=== PATIENT | female | born 1975 | race Caucasian/White ===

== ENCOUNTER 2016-04-17 03:53 | Emergency (ER) | payer BC, OTHER ==
[2016-04-17] MEDS ORDERED: DEXAMETHASONE 10 MG/ML VIAL PO STA (04:00)
[2016-04-17] MEDS ORDERED: AMOX/CLAV 875 MG/125 MG TABLET PO STA (04:00)
[2016-04-17] MEDS ORDERED: LIDOCAINE VISCOUS 2% 15 ML UDC MM STA (04:00)
[2016-04-17] MEDS ORDERED: KETOROLAC 60 MG/2 ML VIAL IM STA (04:00)
[2016-04-17] MEDS ORDERED: LIDOCAINE VISCOUS 2% 15 ML UDC MM ONE (04:03)
[2016-04-17] MEDS ORDERED: AMOX/CLAV 875 MG/125 MG TABLET PO ONE (04:04)
[2016-04-17] MEDS ORDERED: KETOROLAC 60 MG/2 ML VIAL ONE (04:04)
[2016-04-17] MEDS ORDERED: DEXAMETHASONE 10 MG/ML VIAL ONE (04:04)
== END 2016-04-17 04:28 | disposition home or self-care (01) ==
DX: J36 Peritonsillar abscess (principal)
CPT/HCPCS: 96372; 99283; A9270

== ENCOUNTER 2020-07-16 08:47 | Outpatient (CLI) | payer BC ==
--- NOTE | 2020-07-17 07:49 | Mammography Report ---
BILATERAL DIGITAL SCREENING MAMMOGRAM 3D/2D: 07/16/2020 CLINICAL: Baseline exam. No prior exams were available for comparison. The tissue of both breasts is heterogeneously dense. T his may lower the sensitivity of mammography. There is a new 0.6 cm x 0.9 cm oval mass in the right breast at 2 o'clock anterior depth 7 cm from th e nipple. No other significant masses, calcifications, or other findings are seen in either breast. IMPRESSION: INCOMPLETE: NEEDS ADDITIONAL IMAGING EVALUATION The new 0.6 cm x 0.9 cm oval mass in the right breast is indeterminate. Additional views with possib le ultrasound are recommended. This exam was interpreted at Station ID: [id number]. NOTE: For mammograms, a report in lay terms will be sent to the patient. Approximately 15% of breast malignancies will not be visualized mammographically. In the management of a palpable breast mass, a negative mammogram must not discourage biopsy of a clinically suspicious lesion. Electronically Signed By: Lizandro Mccallum acr/penrad:07/16/2020 09:25:24 ACR BI-RADS Category 0: Incomplete 3340F PARENCHYMAL PATTERN: (D) - The breast(s) demonstrate(s) heterogeneously dense fibroglandular parenchy ma. BI-RADS CATEGORY: (0) - 0 Ultrasound [id number] Immediate follow-up LATERALITY: (R)
== END 2020-07-16 08:48 | disposition home or self-care (01) ==
LOC: DI 08:47
PROVIDERS: ATTEND Nurse Practitioner Obstetrics & Gynecology
DX: Z12.31 Encounter for screening mammogram for malignant neoplasm of breast (principal); N63.12 Unspecified lump in the right breast, upper inner quadrant

== ENCOUNTER 2020-08-11 08:16 | Outpatient (CLI) | payer BC ==
--- NOTE | 2020-08-12 12:16 | Ultrasound Report ---
LIMITED ULTRASOUND OF RIGHT BREAST AND AXILLA: 08/11/2020 CLINICAL: Patient returns today to evaluate a focal asymmetry in the right breast. Comparison is made to exams dated: 08/11/2020 mammogram and 07/16/2020 mammogram - [facility]. Color flow and real-time ultrasound of the right breast 2 o'clock, and axilla regions were performed on the areas of interest. Vázquez scale images of the real-time examination were reviewed. There is a 0.9 cm x 0.4 cm x 0.6 cm oval mass with a circumscribed margin in the right breast at 2 o' clock middle depth. This oval mass is hypoechoic with suggestion of a fatty hilum. This likely cassia elates with mammography findings. Color flow imaging demonstrates that there is adjacent vascularity . No suspicious enlarged lymph nodes were seen sonographically in the right axilla. IMPRESSION: PROBABLY BENIGN The 0.9 cm x 0.4 cm x 0.6 cm oval mass in the right breast resembles an intrammammary lymph node and is probably benign. Follow-up mammogram and ultrasound in 6 months are recommended. A follow-up mammogram and an ultrasound in 6 months are recommended to demonstrate stability. This exam was interpreted at Station ID: [id number]. Electronically Signed By: Scot Nguyen M.D. ddshiva/:08/11/2020 09:52:38 Ultrasound BI-RADS: 3 Probably benign BI-RADS CATEGORY: (3) - 3 Mammo and [place] [id number] 6 month follow-up LATERALITY: (B)
--- NOTE | 2020-08-12 12:16 | Mammography Report ---
UNILATERAL RIGHT DIGITAL DIAGNOSTIC MAMMOGRAM 3D/2D: 08/11/2020 CLINICAL: Patient returns today to evaluate a focal asymmetry in the right breast. Comparison is made to exam dated: 07/16/2020 mammogram - [facility]. The tissue of right breast is heterogeneously dense. This may lower the sensitivity of mammography. There is an oval low density mass with an indistinct and circumscribed margin in the right breast at 2 o'clock anterior depth. No other significant masses or calcifications are seen in the breast. IMPRESSION: INCOMPLETE: NEEDS ADDITIONAL IMAGING EVALUATION The oval low density mass in the right breast is indeterminate. An ultrasound is recommended. Ultrasound will be performed immediately following the current exam. This exam was interpreted at Station ID: [id number]. NOTE: For mammograms, a report in lay terms will be sent to the patient. Approximately 15% of breast malignancies will not be visualized mammographically. In the management of a palpable breast mass, a negative mammogram must not discourage biopsy of a clinically suspicious lesion. Electronically Signed By: Scot Nguyen M.D. ddp/:08/11/2020 09:20:50 ACR BI-RADS Category 0: Incomplete 3340F PARENCHYMAL PATTERN: (D) - The breast(s) demonstrate(s) heterogeneously dense fibroglandular zoey rangel. BI-RADS CATEGORY: (0) - 0 Ultrasound [id number] Immediate follow-up LATERALITY: (B)
== END 2020-08-11 08:17 | disposition home or self-care (01) ==
LOC: DI 08:16
PROVIDERS: ATTEND Nurse Practitioner Obstetrics & Gynecology
DX: R92.2 Inconclusive mammogram (principal)

== ENCOUNTER 2021-10-18 10:25 | Outpatient (CLI) | payer BC ==
--- NOTE | 2021-10-19 08:20 | Mammography Report ---
BILATERAL DIGITAL DIAGNOSTIC MAMMOGRAM 3D/2D: 10/18/2021 CLINICAL: Short term follow up for bilateral breasts. Comparison is made to exams dated: 08/11/2020 mammogram, 07/16/2020 mammogram, and 08/11/2020 ultrasound - [facility]. The tissue of both breasts is heterogeneously dense. This may lower t he sensitivity of mammography. There is an oval low density mass with an indistinct and circumscribed margin in the right breast at 2 o'clock anterior depth. This is not significantly changed. No other significant masses, calcifications, or other findings are seen in either breast. IMPRESSION: INCOMPLETE: NEEDS ADDITIONAL IMAGING EVALUATION The oval low density mass in the right breast is indeterminate. An ultrasound is recommended. This exam was interpreted at Station ID: [id number]. NOTE: For mammograms, a report in lay terms will be sent to the patient. Approximately 15% of breast malignancies will not be visualized mammographically. In the management of a palpable breast mass, a negative mammogram must not discourage biopsy of a clinically suspicious lesion. Electronically Signed By: Stuart monroe/steven:10/18/2021 12:03:28 ACR BI-RADS Category 0: Incomplete 3340F PARENCHYMAL PATTERN: (D) - The breast(s) demonstrate(s) heterogeneously dense fibroglandular zoey rangel. BI-RADS CATEGORY: (0) - 0 Ultrasound [id number] Immediate follow-up LATERALITY: (R)
--- NOTE | 2021-10-19 08:20 | Ultrasound Report ---
LIMITED ULTRASOUND OF RIGHT BREAST: 10/18/2021 CLINICAL: Patient returns for follow-up of a probably benign mass in the right breast. Comparison is made to exams dated: 10/18/2021 mammogram, 08/11/2020 ultrasound, 08/11/2020 mammogram, and 07/16/2020 mammogram - [facility]. Color flow ultrasound of the right breast 2 o'clock region was performed. Vázquez scale images of the r eal-time examination were reviewed. There is a 0.9 cm x 0.4 cm x 0.6 cm oval mass with a circumscribed margin in the right breast at 2 o' clock middle depth. This oval mass is hypoechoic with fatty hilum. This abnormality is not signific antly changed and correlates with mammography findings. IMPRESSION: PROBABLY BENIGN The 0.9 cm x 0.4 cm x 0.6 cm oval mass in the right breast resembles a lymph node and is probably luigi ign. A follow-up mammogram and an ultrasound in 12 months is recommended. This exam was interpreted at Station ID: [id number]. Electronically Signed By: Stuart monroe/steven:10/18/2021 12:04:18 Ultrasound BI-RADS: 3 Probably benign BI-RADS CATEGORY: (3) - 3 Mammo and [place] [id number] 12 month follow-up LATERALITY: (B)
== END 2021-10-18 10:26 | disposition home or self-care (01) ==
LOC: DI 10:25
PROVIDERS: ATTEND Nurse Practitioner
DX: N63.12 Unspecified lump in the right breast, upper inner quadrant (principal)

== ENCOUNTER 2022-11-03 07:43 | Outpatient (CLI) | payer OTHER ==
--- NOTE | 2022-11-03 11:39 | Ultrasound Report ---
LIMITED ULTRASOUND OF RIGHT BREAST: 11/03/2022 CLINICAL: Patient returns for a 12 month follow up of the right breast, due for bilateral exam. Comparison is made to exams dated: 11/03/2022 mammogram, 10/18/2021 ultrasound, 10/18/2021 mammogram, ultrasound, 08/11/2020 mammogram, and 07/16/2020 mammogram - [facility]. Color flow and real-time ultrasound of the right breast 2 o'clock region were performed. Vázquez scale images of the real-time examination were reviewed. There is a stable benign 0.9 cm x 0.5 cm x 0.4 cm oval mass with a circumscribed margin in the right breast at 2 o'clock middle depth 6 cm from the nipple. This oval mass is hypoechoic. This correlate s with mammography findings. Color flow imaging demonstrates that there is an adjacent vascularity. IMPRESSION: BENIGN There is no sonographic evidence of malignancy. The 0.9 cm circumscribed mass in the right breast is demonstrates long-term stability and is benign. This most likely represents a fibroadenoma or lymph node. A 1 year screening mammogram is recommended. Exam findings were conveyed to the patient. Patient is advised to monitor for significant change. This exam was interpreted at Station ID: [id number]. Electronically Signed By: Gurjit Alcala M.D. slc/:11/03/2022 09:19:59 Ultrasound BI-RADS: 2 Benign BI-RADS CATEGORY: (2) - 2 Mammogram [id number] 1 year screening LATERALITY: (B)
--- NOTE | 2022-11-03 11:39 | Mammography Report ---
BILATERAL DIGITAL DIAGNOSTIC MAMMOGRAM 3D/2D: 11/03/2022 CLINICAL: Patient returns for a 12 month follow up of the right breast, due for bilateral exam. Comparison is made to exams dated: 10/18/2021 mammogram, 08/11/2020 mammogram, 07/16/2020 mammogram, and 10/18/2021 ultrasound - [facility]. Both breasts are heterogeneously dense, which may obscure small masses (category c / 51-75% glandular tissue). There is an oval mass in the right breast at 2 o'clock anterior depth. This is not significantly concha nged. No other significant masses, calcifications, or other findings are seen in either breast. IMPRESSION: INCOMPLETE: NEEDS ADDITIONAL IMAGING EVALUATION The oval mass in the right breast is indeterminate. A targeted ultrasound is recommended and will immediately follow. Based on the Tyrer Cuzick model (a risk assessment model) the patients lifetime risk is 15.1% and he r 10 year risk is 2.8%. According to the ACR, ACS, and NCCN guidelines, an annual breast MRI exam [place] ng with mammogram is recommended if the patients lifetime risk is 20% or greater. This exam was interpreted at Station ID: [id number]. NOTE: For mammograms, a report in lay terms will be sent to the patient. Approximately 15% of breast malignancies will not be visualized mammographically. In the management of a palpable breast mass, a negative mammogram must not discourage biopsy of a clinically suspicious lesion. Electronically Signed By: Gurjit Alcala M.D. slc/:11/03/2022 09:08:57 ACR BI-RADS Category 0: Incomplete 3340F PARENCHYMAL PATTERN: (D) - The breast(s) demonstrate(s) heterogeneously dense fibroglandular pararturo rangel. BI-RADS CATEGORY: (0) - 0 Ultrasound [id number] Immediate follow-up LATERALITY: (B)
== END 2022-11-03 07:44 | disposition home or self-care (01) ==
LOC: DI 07:43
PROVIDERS: ATTEND Nurse Practitioner
DX: N63.12 Unspecified lump in the right breast, upper inner quadrant (principal)

== ENCOUNTER 2023-05-27 10:16 | Outpatient (CLI) | payer OTHER ==
[2023-05-27 10:37] LABS: BASOPHILS # (AUTO) 0.1 10^3/uL (0.0-0.1); BASOPHILS % (AUTO) 1.1 %; EOSINOPHILS # (AUTO) 0.1 10^3/uL (0.0-0.7); HCT - HEMATOCRIT 39.1 % (37.0-47.0); HGB - HEMOGLOBIN 12.3 g/dL (12.0-16.0); LYMPHOCYTES # (AUTO) 1.8 10^3/uL (1.5-3.5); LYMPHOCYTES % (AUTO) 27.1 %; MEAN CORPUSCULAR HEMOGLOBIN 27.2 pg (27.0-31.0); MEAN CORPUSCULAR HGB CONC 31.5 g/dL (32.0-36.0); MEAN CORPUSCULAR VOLUME 86.5 fL (81.0-99.0); MEAN PLATELET VOLUME 9.7 fL (7.9-10.8); MONOCYTES # (AUTO) 0.7 10^3/uL (0.0-1.0); MONOCYTES % (AUTO) 11.2 %; NEUTROPHILS # (AUTO) 3.8 10^3/uL (1.5-6.6); NEUTROPHILS % (AUTO) 58.3 %; PLT - PLATELET COUNT 324 10^3/uL (130-450); RED BLOOD COUNT 4.52 10^6/uL (4.20-5.40); RED CELL DISTRIBUTION WIDTH 14.1 % (12.0-15.0); WHITE BLOOD COUNT 6.5 x10^3/uL (4.8-10.8)
[2023-05-27 11:23] LABS: ALBUMIN 4.2 g/dL (3.2-5.5); ALBUMIN/GLOBULIN RATIO 1.4 (1.0-2.2); ALKALINE PHOSPHATASE 73 IU/L (42-121); ALT ALANINE AMINOTRANSFERASE 11 IU/L (10-60); AST ASPARTATE AMINOTRANSFERASE 14 IU/L (10-42); BILIRUBIN,TOTAL 0.4 mg/dL (0.2-1.0); BUN - BLOOD UREA NITROGEN 16 mg/dL (6-20); CALCIUM 9.4 mg/dL (8.5-10.3); CARBON DIOXIDE - CO2 25 mmol/L (21-32); CHLORIDE 106 mmol/L (101-111); CHOLESTEROL 230 mg/dL; CREATININE 0.7 mg/dL (0.6-1.3); GFR - MDRD 90 (>89); GLUCOSE 87 mg/dL (74-104); HDL CHOLESTEROL 77 mg/dL; LDL CHOLESTEROL,CALCULATED 139 mg/dL; LDL/HDL RATIO 1.8 (<4.4); SODIUM 138 mmol/L (135-145); TOTAL PROTEIN 7.1 g/dL (6.4-8.9); TRIGLYCERIDES 68 mg/dL (48-352); VLDL CHOLESTEROL 14 mg/dL
[2023-05-27 11:33] LABS: THYROID STIMULATING HORMONE 2.05 uIU/mL (0.34-5.60)
== END 2023-05-27 10:17 | disposition home or self-care (01) ==
LOC: LAB 10:16
PROVIDERS: ATTEND Nurse Practitioner
DX: Z00.00 Encounter for general adult medical examination without abnormal findings (principal); E78.2 Mixed hyperlipidemia; G43.909 Migraine, unspecified, not intractable, without status migrainosus; F32.9 Major depressive disorder, single episode, unspecified
CPT/HCPCS: 36415; 80053; 80061; 83721; 84443; 85025